=== PATIENT | male | born 1975 | race Caucasian/White ===

== ENCOUNTER 2022-02-25 08:34 | Emergency (ER) | payer SELFPAY ==
[2022-02-25] MEDS ORDERED: Metoclopramide 10 MG/2 ML SDV IVPUSH ONE (08:56)
[2022-02-25] MEDS ORDERED: HYDROmorphone 1 MG/ML Syringe IVPUSH ONE (08:56)
[2022-02-25] MEDS ORDERED: Dextrose 5%-0.9% NaCl 1,000 ML IV SCH (09:00)
[2022-02-25] MEDS ORDERED: LORazepam 2 MG/ML SDV IV ONE (09:35)
[2022-02-25] MEDS ORDERED: fentaNYL 100 MCG/2 ML SDV IVPUSH ONE (10:08)
[2022-02-25] MEDS ORDERED: Propofol 200 MG/20 ML SDV IVPUSH ONE (10:19)
== END 2022-02-25 12:05 | disposition home or self-care (01) ==
LOC: JD.ED 08:34
DX: S82.851A Displaced trimalleolar fracture of right lower leg, initial encounter for closed fracture (principal); W23.1XXA Caught, crushed, jammed, or pinched between stationary objects, initial encounter
CPT/HCPCS: 27818; 73590; 73610; 73630; 73700; 96374; 96375; 99283; J1170; J2060; J2704; J2765; J3010; J7042; 99284